=== PATIENT | male | born 1980 | race Caucasian/White ===

== ENCOUNTER 2023-01-06 21:24 | Observation (INO) | payer BC ==
[2023-01-06] MEDS ORDERED: ONDANSETRON 4 MG/2 ML VIAL IVPB ONE (21:47)
[2023-01-06] MEDS ORDERED: SODIUM CHLORIDE 1,000 ML IV ONE ×2 (21:47→22:44)
[2023-01-06] MEDS ORDERED: KETOROLAC TROMETHAMINE 30 MG/1 ML VIAL IVPUSH ONE (21:47)
[2023-01-06 21:57] LABS: HEMATOCRIT 49.8 % (35.4-49); HEMOGLOBIN 16.4 G/dL (11.7-16.9); MCH 28.8 pg (25.7-33.7); MCHC 32.9 g/dl (32.0-35.9); MEAN CELL VOLUME 87.6 fl (80-96); MEAN PLT VOLUME 7.5 fl (7.5-11.1); PLATELET COUNT 320.5 10^3/uL (134-434); RBC 5.68 10^6/uL (4.00-5.60); RDW 16.2 % (11.9-15.9); WHITE BLOOD COUNT 6.2 10^3/uL (4.0-10.8)
[2023-01-06] MEDS ORDERED: ONDANSETRON 4 MG/2 ML VIAL ONE (21:57)
[2023-01-06] MEDS ORDERED: KETOROLAC TROMETHAMINE 30 MG/1 ML VIAL ONE (21:57)
[2023-01-06 22:14] LABS: ALBUMIN 4.9 g/dl (3.4-5.0); BLOOD UREA NITROGEN 22.4 mg/dl (7-18); CALCIUM 10.1 mg/dl (8.5-10.1); CREATININE 1.4 mg/dl (0.6-1.3); MAGNESIUM 1.7 mg/dL (1.8-2.4); PHOSPHOROUS 3.66 (2.5-4.9); POTASSIUM 4.3 mmol/L (3.5-5.1); SGOT/AST 85.8 U/L (15-37); SGPT/ALT 61.6 U/L (7-52); TOT PROT 7.8 g/dl (6.4-8.2)
[2023-01-06] MEDS ORDERED: morphine CARPU-JECT 4 MG/1 ML DISP.SYRIN IVPUSH ONE (22:23)
[2023-01-06] MEDS ORDERED: morphine SULFATE 4 MG/ML VIAL ONE (22:24)
[2023-01-06 23:54] LABS: BILIRUBIN,TOTAL 0.5 mg/dL (0.2-1)
[2023-01-07] MEDS ORDERED: TRIMETHOBENZAMIDE HCL 200MG/2ML INJ IM PRN (01:16)
[2023-01-07] MEDS ORDERED: DOCUSATE SODIUM 100 MG CAPSULE (FP) PO PRN (01:16)
[2023-01-07] MEDS ORDERED: ACETAMINOPHEN 1000 MG/100 ML BAG IVPB PRN ×3 (01:20→09:47)
[2023-01-07] MEDS ORDERED: SODIUM CHLORIDE 1,000 ML IV SCH ×2 (01:30→05:26)
[2023-01-07 01:41] VITALS: BMI 77.1
[2023-01-07 02:07] VITALS: RESP 18
[2023-01-07] MEDS ORDERED: SENNOSIDES/DOCUSATE COMBO (SENNA PLUS) TABLET (UD) PO ONE (05:30)
[2023-01-07 07:04] VITALS: TEMP 97.9
[2023-01-07 08:48] LABS: HEMOGLOBIN 14.5 G/dL (11.7-16.9); MCH 29.3 pg (25.7-33.7); MEAN CELL VOLUME 88.7 fl (80-96); MEAN PLT VOLUME 7.6 fl (7.5-11.1); PLATELET COUNT 271.9 10^3/uL (134-434); RBC 4.96 10^6/uL (4.00-5.60); RDW 15.8 % (11.9-15.9); WHITE BLOOD COUNT 4.8 10^3/uL (4.0-10.8)
[2023-01-07 09:10] LABS: ALBUMIN 4.1 g/dl (3.4-5.0); ALK PHOS 28 U/L (45-117); ANION GAP 11 MMOL/L (8-16); BLOOD UREA NITROGEN 23.4 mg/dl (7-18); CALCIUM 8.5 mg/dl (8.5-10.1); CHLORIDE 102 mmol/L (98-107); CO2 24 mmol/L (21-32); CREATININE 1.3 mg/dl (0.6-1.3); GLUCOSE,RANDOM 71 mg/dl (74-106); LDH 180 U/L (84-246); POTASSIUM 4.2 mmol/L (3.5-5.1); SGPT/ALT 48.7 U/L (7-52); SODIUM 137 mmol/L (136-145); TOT PROT 6.4 g/dl (6.4-8.2)
[2023-01-07 09:46] VITALS: BP 131/70; PULSE 65
[2023-01-07 10:58] LABS: BILIRUBIN,TOTAL 0.6 mg/dL (0.2-1)
[2023-01-07 11:00] LABS: PHENCYCLIDINE,URINE NEGATIVE (NEGATIVE)
[2023-01-07 11:01] LABS: COCAINE, UR NEGATIVE (NEGATIVE); OPIATES, URI NEGATIVE (NEGATIVE); URINE AMPHETAMINES NEGATIVE (NEGATIVE)
[2023-01-07 11:02] LABS: URINE BARBITURATES NEGATIVE (NEGATIVE)
[2023-01-07 11:04] LABS: METHADONE, UR NEGATIVE (NEGATIVE); URINE BENZODIAZEPINES NEGATIVE (NEGATIVE)
== END 2023-01-07 12:16 | disposition home or self-care (01) ==
LOC: FER 21:24 → UNDOADMOB 01-07 01:05 → INTOOBSV 01-07 01:05 → FM/S 01-07 01:05
PROVIDERS: ADMIT Internal Medicine
PROC: 3E033NZ Introduction of Analgesics, Hypnotics, Sedatives into Peripheral Vein, Percutaneous Approach (ICD-10-PCS; principal; 2023-01-07)
PROC: 3E0333Z Introduction of Anti-inflammatory into Peripheral Vein, Percutaneous Approach (ICD-10-PCS; 2023-01-07)
PROC: 3E033GC Introduction of Other Therapeutic Substance into Peripheral Vein, Percutaneous Approach (ICD-10-PCS; 2023-01-07)
PROC: 3E0337Z Introduction of Electrolytic and Water Balance Substance into Peripheral Vein, Percutaneous Approach (ICD-10-PCS; 2023-01-07)
DX: R10.11 Right upper quadrant pain (principal); N17.9 Acute kidney failure, unspecified; R74.8 Abnormal levels of other serum enzymes; R74.01 Elevation of levels of liver transaminase levels; R79.9 Abnormal finding of blood chemistry, unspecified; M62.82 Rhabdomyolysis; Z87.828 Personal history of other (healed) physical injury and trauma; Z87.891 Personal history of nicotine dependence; Z29.8 Encounter for other specified prophylactic measures; F55.3 Abuse of steroids or hormones; K59.00 Constipation, unspecified
CPT/HCPCS: 36415; 71045-TC-FY; 76705-TC; 80053; 80307; 81003; 82085; 82550; 82553; 83615; 83690; 83735; 84100; 84484; 85027; 85730; 86140; 93005; 96374; 96375; 99285-25; G0378